=== PATIENT | male | born 2000 | race Caucasian/White ===

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

== ENCOUNTER → 2022-03-14 | Outpatient (CLI) | payer BC ==
[2022-03-14 22:46] LABS: Basophils # (A) 0.05 X 10*3/uL (0.00-0.10); Basophils % (A) 0.6 %; Eosinophils # (A) 0.31 X 10*3/uL (0.04-0.35); HCT 36.7 % (39.6-50.0); HGB 11.2 g/dL (13.0-17.0); Immature Grans, Automated 0.5 %; Lymphocytes # (A) 1.41 X 10*3/uL (0.90-5.00); Lymphocytes % (A) 18.2 %; MCH 24.4 pg (27.0-32.0); MCHC 30.5 g/dL (32.0-37.0); Mean Platelet Volume 9.2 fL (9.5-12.2); Monocytes # (A) 0.97 X 10*3/uL (0.20-1.00); Monocytes % (A) 12.5 %; NRBC Per 100 WBC 0 /100 WBCS (0.0-0.0); Neutrophils # (A) 4.98 X 10*3/uL (1.80-7.70); Neutrophils % (A) 64.2 %; Platelet Count 502 X 10*3/uL (140-440); RBC 4.59 X 10*6/uL (4.40-5.60); RDW 15.7 % (11.5-14.5); WBC 7.76 X 10*3/uL (4.50-10.00)
[2022-03-14 23:15] LABS: Erythrocyte Sedimentation Rate 45 mm/Hr (0-15)
[2022-03-14 23:43] LABS: African American GFR (CKD) 154.4 (60.0-200.0); Albumin 4.2 g/dL (3.8-4.9); Albumin/Globulin Ratio 1.16 (1.60-3.17); Anion Gap 15.8 mmol/L (10.00-18.00); BUN/Creat Ratio 18.8 Ratio (12.00-20.00); Blood Urea Nitrogen 13.8 mg/dL (9.0-27.0); C Reactive Protein 10.6 mg/dL (0.00-0.80); Calcium 9.2 mg/dL (8.7-10.3); Carbon Dioxide 22.3 mmol/L (20.0-27.5); Globulin 3.6 g/dL (1.6-3.3); Non-African American GFR(CKD) 133.2 (60.0-200.0); Potassium 4.2 mmol/L (3.5-5.5); Total Bilirubin 0.3 mg/dL (0.30-1.20); Total Protein 7.8 g/dL (6.2-8.2)
== END | disposition home or self-care (01) ==
LOC: LABWHC1 14:48
PROVIDERS: ATTEND Internal Medicine Gastroenterology
DX: K50.00 Crohn's disease of small intestine without complications (principal)
CPT/HCPCS: 36415; 80053; 85025; 85652; 86140; 86480

== ENCOUNTER → 2023-12-07 | Outpatient (CLI) | payer OTHER ==
--- NOTE | 2023-12-07 10:48 | CT ---
EXAMINATION TYPE: CT Enterography CT DLP: 911.2 mGycm, Automated exposure control for dose reduction was used. DATE OF EXAM: 12/07/2023 9:09 AM CLINICAL INDICATION:Male, 23 years old with history of K50.00 CROHN'S DISEASE OF SMALL INTESTINE; Assistant [employer] COMPARISON: Small bowel follow-through. TECHNIQUE: ENTEROGRAPHY PROTOCOL; Multiple thin slice millimeter images were obtained through the abd omen and pelvis following the administration of IV contrast material and Volumen oral contrast. Hima nal reformats were also reconstructed. Contrast used:100 mL of Isovue 370 with IV Contrast, Oral contrast used: with Oral Contrast FINDINGS: LOWER CHEST: No significant findings. ABDOMEN LIVER: Unremarkable GALLBLADDER AND BILE DUCTS: Unremarkable. PANCREAS: Unremarkable. SPLEEN: Unremarkable. ADRENAL GLANDS: Unremarkable. KIDNEYS AND URETERS: No evidence of hydronephrosis or renal calculus. The ureters are unremarkable. PELVIS BLADDER: Unremarkable REPRODUCTIVE: Unremarkable. ABDOMEN & PELVIS STOMACH AND BOWEL: There is a small bowel stricture at the distal terminal ileum with hyperemia with upstream dilation of the bowel small bowel feces. From this area of stricture appears hyperemia of th e terminal ileum with circumferential wall thickening of the terminal ileum measuring up to 6 mm. Fat stranding changes are in this region. Multiple fistulas identified including one extending from the cecum to the terminal ileum and multiple extending from terminal ileum to terminal ileum. Blind-endin g fistula also present. No organizing fluid collection to suggest abscess. PERITONEUM/RETROPERITONEUM: No evidence of pneumoperitoneum or free fluid. VASCULATURE: No evidence of aortic aneurysm. MUSCULOSKELETAL: No acute osseous abnormalities LYMPH NODES: No gross evidence for lymphadenopathy. SOFT TISSUE/ABDOMINAL WALL: Unremarkable IMPRESSION Active Crohn's disease with terminal ileitis with partial bowel obstruction and multiple fistulae. No organizing fluid collection to suggest abscess.
== END | disposition home or self-care (01) ==
LOC: RADCTMAIN 07:40
PROVIDERS: ATTEND Internal Medicine Gastroenterology
DX: K50.012 Crohn's disease of small intestine with intestinal obstruction (principal); K50.013 Crohn's disease of small intestine with fistula
CPT/HCPCS: 74178; Q9967